=== PATIENT | male | born 1960 | race Caucasian/White ===

== ENCOUNTER 2020-08-20 06:47 | Day surgery (SDC) | payer MEDICAID, SELFPAY ==
[~2020-08-20] VITALS: Ht 188 cm; Wt 45.4 kg
[2020-08-20] MEDS ORDERED: fentaNYL CITRATE/PF 100 MCG/2 ML AMP ONE (07:56)
[2020-08-20] MEDS ORDERED: SIMETHICONE 40 MG/0.6 ML ML ONE (07:59)
[2020-08-20] MEDS: MIDAZOLAM HCL 5 MG/5 ML VIAL ONE ×3 (09:03→09:11)
[2020-08-20 14:35] VITALS: BP_SYST 82
== END 2020-08-20 10:20 | disposition home or self-care (01) ==
LOC: SDS 06:47 → SMU 06:47 → SDS 10:20
PROVIDERS: ATTEND Internal Medicine
DX: K22.2 Esophageal obstruction (principal); Z85.01 Personal history of malignant neoplasm of esophagus; Z20.828 Contact with and (suspected) exposure to other viral communicable diseases
CPT/HCPCS: 36415; 43239; 87426; 88305; 88312; 99152; G0378; J2250; J3010; U0003; 88313